=== PATIENT | female | born 1945 | race Hispanic/Latino ===

== ENCOUNTER 2018-08-12 07:05 | Day surgery (SDC) | payer OTHER ==
[2018-08-11 16:43] VITALS: BP 203/87
[2018-08-11 16:48] LABS: BASOPHILS % (AUTO) 0.9 % (0.0-5.0); EOSINOPHILS % (AUTO) 1.6 % (0.0-8.0); HEMATOCRIT 45.4 % (36-48); LYMPHOCYTES % (AUTO) 31.3 % (21.0-51.0); MEAN CORPUSCULAR HGB CONC 33.6 g/dL (32.0-36.0); MEAN CORPUSCULAR VOLUME 83.4 fL (79-99); MONOCYTES % (AUTO) 9.7 % (3.0-13.0); NEUTROPHILS % (AUTO) 56.5 % (40.0-77.0); PLATELET COUNT (AUTO) 325 K/uL (130-400); RED BLOOD CELL COUNT(AUTO) 5.44 MIL/uL (4.00-5.50); RED CELL DISTRIBUTION WIDTH 14.1 % (11.0-15.5); WHITE BLOOD COUNT (AUTO) 6.7 K/uL (4.8-10.8)
[2018-08-11 17:00] VITALS: BP 187/86
[2018-08-11 17:03] LABS: CREATININE 0.6 mg/dL (0.5-1.5); POTASSIUM 3.7 mmol/L (3.5-5.1)
[2018-08-12] VITALS (13 sets, daily range): BP systolic 110–134; BP diastolic 47–75
[~2018-08-12] VITALS: Ht 152.4 cm; Wt 63.9 kg
[~2018-08-12 07:05] MED LIST: ATOR40TA71 PO; CITA-107 PO; IBUP-2070 PO; LACTATED RINGERS 1000ML 1,000 ML IV SCH; LOSA50TA25 PO; TRAZ-185 PO
[2018-08-12] MEDS ORDERED: LIDOCAINE PF 2% 5ML ABBOJECT ONE (10:49)
[2018-08-12] MEDS ORDERED: FENTANYL CITRATE PF 50 MCG/1 ML 2ML VIAL ONE (10:49)
[2018-08-12] MEDS ORDERED: PROPOFOL 10 MG/ML 20ML VIAL IV ONE (10:49)
[2018-08-12] MEDS ORDERED: ROCURONIUM 10MG/1ML SYR 10 MG/ML ML ONE (10:53)
[2018-08-12] MEDS ORDERED: GLYCOPYRROLATE 1 MG/5 ML SYRINGE ONE (11:29)
[2018-08-12] MEDS ORDERED: DEXAMETHASONE SOD PHOSPHATE 10MG/ML 1ML VIAL ONE (11:31)
[2018-08-12] MEDS ORDERED: NEOSTIGMINE 5MG/5ML SYR IV ONE (11:55)
[2018-08-12] MEDS ORDERED: MEPERIDINE-PF 25 MG/ML SYG ONE ×2 (12:25→12:37)
== END 2018-08-12 13:50 | disposition home or self-care (01) ==
LOC: DAH 07:05
PROVIDERS: ATTEND Obstetrics & Gynecology
DX: N83.201 Unspecified ovarian cyst, right side (principal); E78.5 Hyperlipidemia, unspecified; I10 Essential (primary) hypertension; E11.9 Type 2 diabetes mellitus without complications; Z80.0 Family history of malignant neoplasm of digestive organs; Z79.899 Other long term (current) drug therapy; Z88.8 Allergy status to other drugs, medicaments and biological substances
CPT/HCPCS: 36415; 58661; 80048; 85025; 86850; 86900; 86901; 88307; 93005; A4215; A4344; A4510; A4600; A4606; A4649 ×3; C1769 ×3; J1100; J2175 ×2; J2001; J2704; J2710; J3010; J3490; J7030; J7120

== ENCOUNTER → 2022-06-14 | Outpatient (CLI) | payer OTHER ==
[~2022-06-14] MED LIST changes: +GADOTERATE MEGLUMINE 10 MMOL/20 ML VIAL IV ONE; -LACTATED RINGERS 1000ML 1,000 ML IV SCH; -LOSA50TA25 PO; +LOSA50TA64 PO
== END | disposition home or self-care (01) ==
LOC: RAH 13:20
PROVIDERS: ATTEND Internal Medicine
DX: N28.1 Cyst of kidney, acquired (principal); K80.20 Calculus of gallbladder without cholecystitis without obstruction
CPT/HCPCS: 74183; A9575

== ENCOUNTER → 2023-08-22 | Outpatient (CLI) | payer OTHER ==
[~2023-08-22] MED LIST changes: -GADOTERATE MEGLUMINE 10 MMOL/20 ML VIAL IV ONE
== END | disposition home or self-care (01) ==
LOC: RAH 12:49
PROVIDERS: ATTEND Urology
DX: N28.1 Cyst of kidney, acquired (principal)
CPT/HCPCS: 76770